=== PATIENT | female | born 1960 | race Caucasian/White ===

== ENCOUNTER → 2017-05-19 | Outpatient (CLI) | payer OTHER ==
[~2017-05-19] MED LIST: CALCIUM 500 +1 EAC5 PO; FISHOIL; FOLIC ACID0.4 MG PO; MACROBID 100 M100 M1 PO; METHOTREXATE 22.5 MG; MULTIVITAMINS PO; NORCO 5-325 TA1 EACH PO; PERCOCET 5-3251 EACH PO; PYRIDIUM200 MG PO
== END | disposition home or self-care (01) ==
LOC: M.RAD 09:51
DX: M53.3 Sacrococcygeal disorders, not elsewhere classified (principal)